=== PATIENT | male | born 1945 | race Caucasian/White ===

== ENCOUNTER 2018-10-13 12:25 | Emergency (ER) | payer MEDICARE, OTHER ==
[~2018-10-13] VITALS: Ht 175.3 cm; Wt 111.6 kg
[~2018-10-13 12:25] MED LIST: ACET500 PO; ALBU90OI INH; AMOCLA875 PO; Adult Low Dose81 MG; GUAI600T33 PO; HYDACE5 PO; IBUP200 PO; LISI5 PO; LOSA50 PO; LOVA20 PO; Lovastatin20 MG PO; Multiple Vitam1 EAC1; OMEP20ER PO; OXYC5 PO
[2018-10-13 13:18] LABS: Source, Urine Clean Catch
[2018-10-13 13:28] LABS: Appearance, Urine Clear (Clear); Bilirubin, Urine Neg (Neg); Blood, Urine 2+ (Neg); Color, Urine Yellow (P-Yellow); Glucose Qualitative, Urine Neg (Neg); Ketones, Urine Neg (Neg); Leukocyte Esterase, Urine Neg (Neg); Nitrite, Urine Neg (Neg); Protein, Urine 1+ (Neg); Urobilinogen, Urine NORM (Normal)
[2018-10-13 14:19] LABS: Bacteria Not Seen /hpf; Squamous Epithelial Cells Rare /hpf (Few); White Blood Cells, Urine Rare /hpf (0-5)
== END 2018-10-13 15:36 | disposition home or self-care (01) ==
LOC: ER 12:25
PROVIDERS: Physician Assistant
DX: R35.0 Frequency of micturition (principal); R39.11 Hesitancy of micturition; R30.0 Dysuria; I10 Essential (primary) hypertension; Z88.5 Allergy status to narcotic agent; Z79.899 Other long term (current) drug therapy; Z79.82 Long term (current) use of aspirin
CPT/HCPCS: 51798; 81001; 99283

== ENCOUNTER → 2018-12-03 | Outpatient (CLI) | payer MEDICARE, OTHER ==
[2018-12-03 15:58] LABS: Source, Urine Clean Catch
[2018-12-03 16:12] LABS: Appearance, Urine Clear (Clear); Bilirubin, Urine Neg (Neg); Blood, Urine Neg (Neg); Color, Urine Yellow (P-Yellow); Glucose Qualitative, Urine Neg (Neg); Ketones, Urine Neg (Neg); Leukocyte Esterase, Urine Neg (Neg); Nitrite, Urine Neg (Neg); Protein, Urine Neg (Neg); Urobilinogen, Urine NORM (Normal)
[2018-12-03 16:38] LABS: Specific Gravity, Urine 1.005 (1.003-1.022)
== END | disposition home or self-care (01) ==
LOC: LAB 10:40 → LAB SHORT 10:40
PROVIDERS: Family Medicine
DX: N39.0 Urinary tract infection, site not specified (principal)
CPT/HCPCS: 81003

== ENCOUNTER → 2019-06-29 | Outpatient (CLI) | payer MEDICARE, OTHER | END | disposition home or self-care (01) | LOC: LAB SHORT 07:42 → PLD 07:42 | DX: L98.9 Disorder of the skin and subcutaneous tissue, unspecified (principal) | CPT/HCPCS: 88305; 88312 ==

== ENCOUNTER → 2019-12-30 | Outpatient (CLI) | payer MEDICARE, OTHER ==
[2020-01-01 13:38] LABS: Stool Occult Bld Immuno 1 Negative (NEGATIVE)
== END | disposition home or self-care (01) ==
LOC: LAB 11:55 → LAB SHORT 11:55
PROVIDERS: Internal Medicine Gastroenterology
DX: Z12.11 Encounter for screening for malignant neoplasm of colon (principal)
CPT/HCPCS: G0328

== ENCOUNTER → 2020-10-20 | Outpatient (CLI) | payer MEDICARE, OTHER | LOC: LAB SHORT 15:20 → LAB 15:20 | DX: L03.311 Cellulitis of abdominal wall (principal) | CPT/HCPCS: 87070; 87077; 87186; 87205 ==

== ENCOUNTER 2022-11-10 14:49 | Emergency (ER) | payer MEDICARE, OTHER ==
[~2022-11-10] VITALS: Ht 175.3 cm; Wt 99.8 kg
[2022-11-10 14:52] VITALS: BP 158/68
== END 2022-11-10 16:28 | disposition home or self-care (01) ==
LOC: ER 14:49
DX: M54.6 Pain in thoracic spine (principal); I10 Essential (primary) hypertension; Z88.5 Allergy status to narcotic agent; Z79.899 Other long term (current) drug therapy; Z79.82 Long term (current) use of aspirin
CPT/HCPCS: 72070; 96374; 99283-25; A9270; J1885

== ENCOUNTER 2024-08-18 08:25 | Day surgery (SDC) | payer MEDICARE, OTHER ==
[~2024-08-18] VITALS: Ht 175.3 cm; Wt 111.5 kg
[~2024-08-18 08:25] MED LIST changes: +Lactated Ringer's 1,000 ML IV ONE; +METO25ER PO; +OMEP20ER; +ZESTRIL40 M1
[2024-08-18] MEDS ORDERED: Lactated Ringer's 1,000 ML IV ONE (09:51)
[2024-08-18] MEDS ORDERED: propofoL 50 ML IV ONE (10:21)
[2024-08-18] MEDS ORDERED: Lidocaine HCl 1% 30 ML SDV ONE (10:28)
[2024-08-18] MEDS ORDERED: Etomidate 2MG / ML 10ML Vial ONE (10:40)
[2024-08-18 11:56] VITALS: BP 95/71
== END 2024-08-18 11:55 | disposition home or self-care (01) ==
LOC: ORSCSDS 08:25
PROVIDERS: Specialist
PROC: 0DBM8ZX Excision of Descending Colon, Via Natural or Artificial Opening Endoscopic, Diagnostic (ICD-10-PCS; principal; 2024-08-18 10:00)
DX: Z12.11 Encounter for screening for malignant neoplasm of colon (principal); D12.4 Benign neoplasm of descending colon; K64.8 Other hemorrhoids; K57.30 Diverticulosis of large intestine without perforation or abscess without bleeding; Z86.0101 Personal history of adenomatous and serrated colon polyps; I10 Essential (primary) hypertension; K21.9 Gastro-esophageal reflux disease without esophagitis; I35.0 Nonrheumatic aortic (valve) stenosis; Z86.19 Personal history of other infectious and parasitic diseases; E66.9 Obesity, unspecified; Z68.36 Body mass index [BMI] 36.0-36.9, adult; Z79.82 Long term (current) use of aspirin; Z79.899 Other long term (current) drug therapy
CPT/HCPCS: 88305; J2704; J7120